=== PATIENT | male | born 1945 | race Caucasian/White ===

== ENCOUNTER 2018-12-13 11:47 | Emergency (ER) | payer OTHER ==
[2018-12-13 12:02] VITALS: BP 129/77
--- NOTE | 2018-12-13 12:18 | UC ---
Respiratory Complaint HPI - HPI Summary HPI Summary: Patient presents to urgent care with his . Patient's 73-year-old male for 7 days has had progressive sore throat sinus congestion postnasal drip. Patient also with a cough that keeps him awake at night. Cough productive of yellow sputum. No fevers or chills. No nausea or vomiting. Decreased appetite. Patient does smoke 3-4 cigarettes a day. Patient does not have a diagnosis of COPD. Patient has taken [id number] cortisone once without relief. No allergies or antipyretic today. Patient's medications review this visit. 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 Severity Currently: None Pain Intensity: 0 Pain Scale Used: 0-10 Numeric Character: Cough: Productive Alleviating Factors: OTC Meds - Allergies/Home Medications Allergies/Adverse Reactions: Allergies Allergy/AdvReac Type Severity Reaction Status Date / Time No Known Allergies Allergy Verified 12/13/18 12:02 Home Medications: Home Medications Atenolol TAB* [Tenormin TAB* 50 MG] 1 tab PO DAILY 12/13/18 [History Confirmed 12/13/18] Atorvastatin* [Lipitor 40 MG*] 1 tab PO DAILY 12/13/18 [History Confirmed ] PMH/Surg Hx/FS Hx/Imm Hx Previously Healthy: Yes Endocrine History: Dyslipidemia Cardiovascular History: Hypertension - Surgical History Surgical History: Yes Surgery Procedure, Year, and Place: caria by pass surgery - Family History Known Family History: Positive: Non-Contributory - Social History Occupation: Retired Lives: With Family Alcohol Use: Occasionally Substance Use Type: None Smoking Status (MU): Current Every Day Smoker Review of Systems All Other Systems Reviewed And Are Negative: Yes Constitutional: Positive: Negative Skin: Positive: Negative Eyes: Positive: Negative ENT: Positive: Ear Ache, Sinus Pain/Tenderness Respiratory: Positive: Cough - is such Is Patient Immunocompromised?: No Physical Exam - Summary Physical Exam Summary: Vital Signs Reviewed: Yes A+Ox3, no distress Eyes: Conjunctiva Clear, ÁNGEL. EOM intact and full ENT: Hearing grossly normal TM x 2 clear, fluid right TM, + turbinates inflammed and boggy, + thick PND, mmoist, uvula midline, no exudate, + erythema Neck: Positive: Supple Respiratory: Positive: No respiratory distress, No accessory muscle use + CTA throughout no w/r,no cough during eval Cardiovascular: RRR nl s1, s2 no m/r CBT <2 sec abd soft + BS nt/nd no guarding, no distension Musculoskeletal Exam: MATTA x 4 without difficulty Strength Intact, ROM Intact Neurological: Positive: Alert, + sensation throughout Psychological: Positive: Normal Response To examiner Skin: Positive: no rash, no ecchymosis Triage Information Reviewed: Yes Vital Signs: Initial Vital Signs Temp 97.8 F 12/13/18 11:58 Pulse 71 12/13/18 11:58 Resp 16 12/13/18 11:58 BP 129/77 12/13/18 11:58 Pulse Ox 100 12/13/18 11:58 Re-Evaluation - Re-Evaluation First Eval Comment: strep neg. reviewed with pt Respiratory Course/Dx - Course Course Of Treatment: Patient presents to urgent care where 7 days progressive sinus congestion and ear pain sore throat postnasal drip and cough. Patient took [id number] medication once with little improvement. Patient's has similar symptoms. On exam vital signs are stable. Patient has fluid in her right ear. Patient with sinus congestion postnasal drip. Patient without a cough. Vital signs are stable. Patient exam consistent with sinus infection. Patient does have erythema of his throat soreness she doesn't have strep. Anticipate Flonase, antibiotics, and antihistamine. Secretion precaution. Return precaution. Patient comfortable with plan. - Differential Dx/Diagnosis Provider Diagnosis: Rhinosinusitis Discharge ED - Sign-Out/Discharge Documenting (check all that apply): Patient Departure All imaging exams completed and their final reports reviewed: No Studies - Discharge Plan Condition: Stable Disposition: HOME Prescriptions: Amoxicillin PO (*) [Amoxicillin 500 MG CAP*] 500 mg PO Q12H #14 cap Fluticasone NASAL SPRAY 50MCG* [Flonase NASAL SPRAY 50MCG*] 2 spray BOTH NARES DAILY #1 btl Patient Education Materials: Rhinosinusitis (ED) Referrals: Micaela Garg DO [Primary Care Provider] - Additional Instructions: - Stay well hydrated. Drink plenty of non-alcoholic, non-caffinated beverages. - Alternate ibuprofen (Advil, Motrin) 600mg and Tylenol every 3 hours for pain or fever. Take with food. Do NOT take for more than 4-5 days. - These infections are spread by secretions - do NOT share eating or drinking utensils - clean items you share with other people such as cell phones, computer mouse, TV remote, computer tablets,etc. Once you have been antibiotics for 2 days, change your toothbrush and your pillowcase. - get plenty of restful sleep - humidify the air in the room where you sleep - boil water, run a hot steam shower, vaporizer, cups of water by heat register - It is recommended you take Claritin, Loren, or Zyrtec to help with congestion - use nasal spray as prescribed - Take antibiotics as prescribed until gone - contact your doctor or return with questions or concerns - Billing Disposition and Condition Condition: STABLE Disposition: Home
== END 2018-12-13 13:32 | disposition home or self-care (01) ==
LOC: UCEAST 11:47
DX: J32.9 Chronic sinusitis, unspecified (principal); R05 Cough; J02.9 Acute pharyngitis, unspecified; H92.09 Otalgia, unspecified ear; E78.5 Hyperlipidemia, unspecified; I10 Essential (primary) hypertension; F17.210 Nicotine dependence, cigarettes, uncomplicated; Z79.899 Other long term (current) drug therapy; Z95.1 Presence of aortocoronary bypass graft
CPT/HCPCS: 87651; 99212; G0463

== ENCOUNTER 2020-02-08 21:13 | Inpatient (IN) ==
[2020-02-08] MEDS ORDERED: NS 0.9% 1000 ml BAG 1,000 ML IV ONE (22:22)
[2020-02-08] MEDS ORDERED: Morphine 4 MG/ML VIAL (1 ml) IV ONE (22:22)
[2020-02-08] MEDS ORDERED: Ondansetron 4 mg VIAL 2 MG/ML 2 ml VIAL IV ONE (22:23)
[2020-02-08 23:36] LABS: ABS Lymphocytes 0.2 10^3/ul (1.0-4.8); ABS Neutrophils 9.4 10^3/ul (1.5-7.7); Hematocrit 31 % (42-52); Hemoglobin 10.7 g/dL (14.0-18.0); Lymphocyte % 2.4 %; Mean Corpuscular HGB Conc 35 g/dL (31-36); Mean Corpuscular Hemoglobin 32 pg (27-31); Mean Corpuscular Volume 91 fL (80-94); Mean Platelet Volume 8.9 fL (7.4-10.4); Platelet Count 194 10^3/uL (150-450); Red Cell Distribution Width 15 % (10-15); White Blood Count 9.7 10^3/uL (3.5-10.8)
[2020-02-08 23:54] LABS: ALT 46 U/L (7-52); AST 33 U/L (13-39); Albumin 3.6 g/dL (3.2-5.2); Albumin/Globulin Ratio 1.6 (1-3); Alkaline Phosphatase 60 U/L (34-104); Anion Gap 10 mmol/L (2-11); BUN/Creatinine Ratio 38.6 (8-20); Blood Urea Nitrogen 34 mg/dL (6-24); C Reactive Protein 1.72 mg/L (<8.01); CO2 Carbon Dioxide 26 mmol/L (22-32); Calcium 8.2 mg/dL (8.6-10.3); Chloride 98 mmol/L (101-111); EGFR African American 102.7 (>60); EGFR Non-African American 84.9 (>60); Globulin 2.3 g/dL (2-4); Glucose 162 mg/dL (70-100); Lipase < 10 U/L (11.0-82.0); Magnesium 1.9 mg/dL (1.9-2.7); Potassium 3.3 mmol/L (3.5-5.0); Sodium 134 mmol/L (135-145); Total Protein 5.9 g/dL (6.4-8.9)
[2020-02-09] MEDS ORDERED: Iohexol 300 (CONTRAST) 10 ML SDV IV ONE (00:38)
[2020-02-09] MEDS ORDERED: Haloperidol 5 mg/ml SDV IV/IM 5 MG/ML AMP ONE (00:53)
[2020-02-09] MEDS ORDERED: LORazepam 2 mg VIAL 1 ml ONE (00:53)
[2020-02-09] MEDS ORDERED: diPHENhydraMINE IV 50 MG/ML 1 ml VIAL (BENADRYL) ONE (00:53)
[2020-02-09] MEDS ORDERED: Morphine 4 MG/ML VIAL (1 ml) IV ONE ×2 (01:38→06:21)
[2020-02-09] MEDS ORDERED: Pantoprazole VIAL 40 MG VIAL IV ONE (01:39)
[2020-02-09] MEDS ORDERED: Metoclopramide 5 MG/ML VIAL (10 mg) IV SLOW PU ONE (01:49)
[2020-02-09 05:10] LABS: Urine Appearance Clear; Urine Bilirubin Negative (Negative); Urine Blood 1+ (Negative); Urine Color Amber; Urine Glucose Negative (Negative); Urine Ketones Negative (Negative); Urine Nitrite Negative (Negative); Urine Protein 1+(30 mg/dL) (Negative); Urine Urobilinogen Negative (Negative)
[2020-02-09 05:15] LABS: Urine Bacteria Absent (Absent); Urine Red Blood Cell Trace(0-2/hpf) (Absent); Urine Squamous Epithelial Cell Present (Absent); Urine White Blood Cell Trace(0-5/hpf) (Absent)
[2020-02-09] MEDS ORDERED: Magnesium CITRATE LIQ 300 ML BTL PO ONE (05:31)
[2020-02-09] MEDS ORDERED: NS 0.9% 1000 ml BAG 1,000 ML IV ONE ×2 (06:50→08:03)
[2020-02-09] MEDS ORDERED: HYDROmorphone 0.5 MG/0.5 ML SYRINGE IV ONE ×2 (08:04→10:13)
[2020-02-09] MEDS ORDERED: Piperacillin/Tazobac ADVAN 3.375 GM in NS 0.9% 100 ml BAG 100 ML IVPB ONE (08:53)
[2020-02-09] MEDS ORDERED: Acetaminophen IV 1 GM/100ML 1,000 MG/100 ML VIAL IVPB ONE (09:49)
[2020-02-09] MEDS ORDERED: Methylnaltrexone SQ (NF) 12 MG/0.6 ML VIAL SUBCUT ONE (09:51)
[2020-02-09] MEDS ORDERED: Piperacillin/Tazobac ADVAN 3.375 GM in NS 0.9% 100 ml BAG 100 ML IV ONE (10:24)
[2020-02-09] MEDS ORDERED: Zosyn per Pharmacy NOTE FOLLOW UP SCH (11:00)
[2020-02-09] MEDS ORDERED: Norepinephrine 16MCG/ML IVPRE 4,000 MCG/250 ML BAG IV ONE ×2 (11:02→20:56)
[2020-02-09] MEDS: Norepinephrine 16MCG/ML IVPRE 4,000 MCG/250 ML BAG IV SCH ×2 (11:52→14:05)
[2020-02-09] MEDS: ZOSYN 3.375 GM Q8H per EXTENDED INFUSION IV SCH ×2 (12:03→21:22)
[2020-02-09 12:17] LABS: ABS Lymphocytes 0.1 10^3/ul (1.0-4.8); ABS Neutrophils 2.1 10^3/ul (1.5-7.7); Hematocrit 33 % (42-52); Hemoglobin 11.1 g/dL (14.0-18.0); Lymphocyte % 4.4 %; Mean Corpuscular HGB Conc 34 g/dL (31-36); Mean Corpuscular Hemoglobin 31 pg (27-31); Mean Corpuscular Volume 94 fL (80-94); Mean Platelet Volume 9.5 fL (7.4-10.4); Platelet Count 184 10^3/uL (150-450); Red Blood Count 3.54 10^6 /uL (4.18-5.48); Red Cell Distribution Width 16 % (10-15); White Blood Count 2.2 10^3/uL (3.5-10.8)
[2020-02-09] MEDS ORDERED: Rocuronium 50 mg VIAL 10 mg/ml 5 ml VIAL (50 mg) ONE (12:19)
[2020-02-09] MEDS ORDERED: Succinylcholine 200 mg VIAL 20 mg/ml 10 ml VIAL (200 mg) ONE (12:19)
[2020-02-09] MEDS ORDERED: fentaNYL INFUSION 50 MCG/ML 2,500 MCG/50 ML BAG IV SCH ×2 (12:20→18:32)
[2020-02-09] MEDS ORDERED: Etomidate 40 mg/20 ml (2 MG/ML) 20 ml VIAL (40 mg) ONE (12:32)
[2020-02-09] MEDS ORDERED: Midazolam 10 mg/10 ml VIAL 1 mg/ml 10 ml VIAL (10 mg) ONE (12:32)
[2020-02-09 12:34] LABS: Albumin 2.5 g/dL (3.2-5.2); Anion Gap 14 mmol/L (2-11); CO2 Carbon Dioxide 17 mmol/L (22-32); Calcium 7.1 mg/dL (8.6-10.3); Chloride 101 mmol/L (101-111); Indirect Bilirubin 0.5 mg/dL (0.3-1.0); Potassium 4.4 mmol/L (3.5-5.0); Sodium 132 mmol/L (135-145)
[2020-02-09 12:40] LABS: ALT 28 U/L (7-52); AST 21 U/L (13-39); Albumin/Globulin Ratio 1.8 (1-3); Alkaline Phosphatase 67 U/L (34-104); BUN/Creatinine Ratio 27.9 (8-20); Blood Urea Nitrogen 46 mg/dL (6-24); EGFR African American 49.7 (>60); EGFR Non-African American 41.1 (>60); Globulin 1.4 g/dL (2-4); Glucose 238 mg/dL (70-100); Lipase < 10 U/L (11.0-82.0); Total Protein 3.9 g/dL (6.4-8.9)
[2020-02-09 12:55] LABS: Troponin I 0.02 ng/mL (<0.03)
[2020-02-09 13:01] LABS: INR 0.98 (0.82-1.09)
[2020-02-09] MEDS ORDERED: Sodium Bicarbonate 8.4% VIAL 1 MEQ/ML 50 ml VIAL (50 meq) ONE (13:18)
[2020-02-09] MEDS ORDERED: Sodium Bicarbonate 8.4% SYR 50 ml SYRINGE IV ONE ×3 (13:35→15:32)
[2020-02-09] MEDS: Phenylephrine IV 50 MG in NS 0.9% 250 ml 245 ML IV SCH ×2 (13:44→22:39)
[2020-02-09 14:46] VITALS: BP 84/71
[2020-02-09] MEDS ORDERED: Vasopressin 100 UNITS in D5W 250 ml BAG 245 ML IV SCH (15:45)
[2020-02-09] MEDS: Sodium Bicarb 8.4% Vial 50 ML 150 MEQ in D5W 1000 ml BAG 850 ML IV SCH ×2 (15:59→22:32)
[2020-02-09 16:06] LABS: BUN/Creatinine Ratio 23.5 (8-20); Calcium 6.9 mg/dL (8.6-10.3); EGFR African American 38.9 (>60); EGFR Non-African American 32.2 (>60)
[2020-02-09 16:16] LABS: Potassium 5.1 mmol/L (3.5-5.0)
[2020-02-09 16:17] LABS: Hematocrit 35 % (42-52); Hemoglobin 11.4 g/dL (14.0-18.0); Mean Corpuscular HGB Conc 33 g/dL (31-36); Mean Corpuscular Hemoglobin 31 pg (27-31); Mean Corpuscular Volume 94 fL (80-94); Mean Platelet Volume 9.4 fL (7.4-10.4); Platelet Count 155 10^3/uL (150-450); Red Blood Count 3.67 10^6 /uL (4.18-5.48); Red Cell Distribution Width 16 % (10-15); White Blood Count 0.4 10^3/uL (3.5-10.8)
[2020-02-09] MEDS: Norepinephrine 8 mg in 500 mL NS (Pharmacy Admixed Drip) IV SCH ×2 (17:15→22:40)
[2020-02-09] MEDS ORDERED: Chlorhexidine MOUTHWASH 0.12% 15 ML UDC TOPICAL SCH (19:00)
[2020-02-09] MEDS ORDERED: fentaNYL 100 mcg/2 ml 50 MCG/ML VIAL IV SLOW PU PRN (19:18)
[2020-02-09] MEDS ORDERED: Cefepime ADVAN 1 GM in NS 0.9% 50 ML 50 ML IVPB SCH (19:30)
[2020-02-09 20:32] LABS: BUN/Creatinine Ratio 18.6 (8-20); EGFR African American 29.7 (>60); EGFR Non-African American 24.5 (>60); Potassium 4.3 mmol/L (3.5-5.0)
[2020-02-09 20:49] LABS: Calcium 6.3 mg/dL (8.6-10.3)
[2020-02-09] MEDS ORDERED: Calcium Gluconate 1 GM in NS 0.9% 50 ML 50 ML IV ONE (20:51)
[2020-02-10] MEDS ORDERED: Pantoprazole VIAL 40 MG VIAL IV SCH (09:00)
== END 2020-02-09 23:45 | disposition expired | DRG 871 ==
LOC: ED 21:13 → ICU 02-09 09:46 → MERGE 02-09 09:46 → ICU 02-09 11:00
PROVIDERS: ADMIT Internal Medicine; ATTEND Hospitalist